=== PATIENT | female | born 1985 | race Caucasian/White ===

== ENCOUNTER 2020-05-07 00:53 | Inpatient (IN) | payer BC ==
[2020-05-07] MEDS ORDERED: Citric Acid/Sodium Citrate Solution 30 ML Cup PO ONE (01:49)
[2020-05-07] MEDS ORDERED: Sodium Chloride 0.9% 2.5 ML Syringe FLUSH PRN (01:49)
[2020-05-07] MEDS ORDERED: Sodium Chloride 0.9% 10 ML SDV IV PRN (01:49)
[2020-05-07] MEDS ORDERED: ceFAZolin 2 GM in Premix Bag 1 BAG IV ONE (01:49)
[2020-05-07] MEDS ORDERED: Sodium Chloride 0.9% 10 ML Syringe FLUSH PRN (01:49)
[2020-05-07] MEDS: Lactated Ringers 1,000 ML IV SCH ×3 (02:00→03:12)
[2020-05-07] MEDS ORDERED: Oxytocin/0.9 % Sodium Chloride 30 UNIT/500 ML BAG IV SCH (02:00)
[2020-05-07] MEDS ORDERED: Morphine PF 10 MG/10 ML SDV ONE (03:21)
[2020-05-07] MEDS ORDERED: Phenylephrine 1% 10 MG/ML SDV ONE (03:26)
[2020-05-07] MEDS ORDERED: Oxytocin 10 Units/1 ML SDV ONE (03:26)
[2020-05-07] MEDS ORDERED: Ketorolac 30 MG/ML SDV ONE (03:26)
[2020-05-07] MEDS ORDERED: Ondansetron 4 MG/2 ML SDV ONE (03:26)
[2020-05-07] MEDS ORDERED: Acetaminophen/oxyCODONE 325-5 MG Tab PO PRN (03:41)
[2020-05-07] MEDS ORDERED: fentaNYL 100 MCG/2 ML SDV IVPUSH PRN (03:42)
[2020-05-07] MEDS ORDERED: Methylergonovine 0.2 MG/1 ML Amp IM PRN (04:29)
[2020-05-07] MEDS ORDERED: Oxytocin 10 Units/1 ML SDV IM PRN (04:29)
[2020-05-07] MEDS ORDERED: Ondansetron 4 MG/2 ML SDV IVPUSH PRN (04:29)
[2020-05-07] MEDS ORDERED: Misoprostol 200 MCG Tab RECTAL PRN (04:29)
[2020-05-07] MEDS ORDERED: Lanolin 100% Cream 7 GM Tube TOP PRN (04:29)
[2020-05-07] MEDS ORDERED: Tranexamic Acid 1,000 MG in Sodium Chloride 0.9% 100 ML IV PRN (04:29)
[2020-05-07] MEDS ORDERED: Bisacodyl 10 MG Supp RECTAL PRN (04:29)
[2020-05-07] MEDS ORDERED: Lactated Ringers 1,000 ML IV SCH (04:30)
[2020-05-07] MEDS: Ketorolac 30 MG/ML SDV IVPUSH SCH ×4 (04:30→23:03)
--- NOTE | 2020-05-07 04:41 | PCM.OPNOTE ---
- General Post-Op/Procedure Note Date of Surgery/Procedure: 05/07/20 Operative Procedure(s): Primary LTCS Findings: Viable female APGARs 7, 8 weight 3120 gm. Intact placenta with 3 V cord Normal appearing pelvis Pre Op Diagnosis: 39 week IUP. SROM/labor. Breech Post-Op Diagnosis: Same Anesthesia Technique: Spinal Primary Surgeon: Danitza Gray Fluid Replacement, Intraop: 1,500 EBL in mLs: 600 Complications: none known Condition: Stable Free Text/Narrative:: Dictation [id number]
--- NOTE | 2020-05-07 04:56 | PCM.POSTAN ---
POST ANESTHESIA ASSESSMENT - MENTAL STATUS Mental Status: Alert - RESPIRATORY Respiratory Status: Respiratory Rate WNL - CARDIOVASCULAR CV Status: Pulse Rate WNL - GASTROINTESTINAL GI Status: No Symptoms - POST OP HYDRATION Hydration Status: Adequate & Stable
--- NOTE | 2020-05-07 04:57 | PCM.PREANE ---
Preanesthetic Assessment - Anesthesia/Transfusion/Family Hx Anesthesia History: Prior Anesthesia Without Reaction Family History of Anesthesia Reaction: No Transfusion History: No Prior Transfusion(s) - Physical Assessment NPO Status Date: 05/06/20 NPO Status Time: 19:30 Height: 1.65 m Weight: 96.162 kg ASA Class: 2E - Lab Values: Laboratory Last Values WBC 15.41 K/uL (4.0-11.0) H 05/07/20 01:40 RBC 4.47 M/uL (4.30-5.90) 05/07/20 01:40 Hgb 13.1 g/dL (12.0-16.0) 05/07/20 01:40 Hct 38.8 % (36.0-46.0) 05/07/20 01:40 MCV 86.8 fL (80.0-98.0) 05/07/20 01:40 MCH 29.3 pg (27.0-32.0) 05/07/20 01:40 MCHC 33.8 g/dL (31.0-37.0) 05/07/20 01:40 RDW Std Deviation 42.5 fl (28.0-62.0) 05/07/20 01:40 RDW Coeff of Tino 13 % (11.0-15.0) 05/07/20 01:40 Plt Count 291 K/uL (150-400) 05/07/20 01:40 MPV 9.10 fL (7.40-12.00) 05/07/20 01:40 Nucleated RBC % 0.0 /100WBC 05/07/20 01:40 Nucleated RBCs # 0 K/uL 05/07/20 01:40 Cord ABG pH 7.138 (7.18-7.38) L 05/07/20 03:47 Cord ABG Base Excess -9 (-10--2) 05/07/20 03:47 Cord VBG pH 7.199 (7.25-7.45) L 05/07/20 03:47 Cord VBG Base Excess -7 (-10--2) 05/07/20 03:47 COVID-19 (MANUEL) NEGATIVE (NEGATIVE) 05/07/20 01:25 Blood Type O POSITIVE 05/07/20 01:40 Antibody Screen NEGATIVE 07/27/20 01:40 - Allergies Allergies/Adverse Reactions: Allergies Allergy/AdvReac Type Severity Reaction Status Date / Time Sulfa (Sulfonamide Allergy Hives Verified 05/07/20 01:46 Antibiotics) - Acknowledgements Anesthesia Type Planned: Spinal Pt an Appropriate Candidate for the Planned Anesthesia: Yes Alternatives and Risks of Anesthesia Discussed w Pt/Guardian: Yes Pt/Guardian Understands and Agrees with Anesthesia Plan: Yes PreAnesthesia Questionnaire HEENT History: Reports: None Cardiovascular History: Reports: None Respiratory History: Reports: None Gastrointestinal History: Reports: Other (See Below) Other Gastrointestinal History: heartburn with LENS GRINDER AND POLISHER History: Reports: Musculoskeletal History: Reports: None Neurological History: Reports: None Psychiatric History: Reports: Panic Attack Endocrine/Metabolic History: Reports: Hypothyroidism Hematologic History: Reports: None Immunologic History: Reports: None Oncologic (Cancer) History: Reports: None Dermatologic History: Reports: None - Infectious Disease History Infectious Disease History: Reports: Influenza - Past Surgical History HEENT Surgical History: Reports: Oral Surgery, Tonsillectomy Other HEENT Surgeries/Procedures: wisdom teeth Female Surgical History: Reports: None - SUBSTANCE USE Smoking Status *Q: Never Smoker Second Hand Smoke Exposure: No Recreational Drug Use History: No - CURRENT (IN HOUSE) MEDS Current Meds: Current Medications Bisacodyl (Dulcolax) 10 mg RECTAL ONETIME PRN PRN Reason: Constipation Diphenhydramine HCl (Benadryl) 25 mg IVPUSH Q6H PRN PRN Reason: Itching or Nausea Docusate Sodium (Colace) 100 mg PO BID ENOCH Emollient Ointment (Lansinoh Hpa) 0 gm TOP ASDIRECTED PRN PRN Reason: Sore Nipples Fentanyl (Sublimaze) 50 mcg IVPUSH Q5M PRN PRN Reason: Pain (severe 7-10) Stop: 05/08/20 03:42 Oxytocin/Sodium Chloride (Oxytocin 30 Unit/500 Ml-Ns) 30 unit in 500 mls @ 250 mls/hr IV TITRATE ENOCH Lactated Ringer's (Ringers, Lactated) 1,000 mls @ 500 mls/hr IV BOLUS ENOCH Last Admin: 05/07/20 03:12 Dose: 999 mls/hr Documented by: Lactated Ringer's (Ringers, Lactated) 1,000 mls @ 125 mls/hr IV ASDIRECTED [facility] Tranexamic Acid 1,000 mg/ (Sodium Chloride) 110 mls @ 660 mls/hr IV ONETIME PRN PRN Reason: Bleeding Ibuprofen (Motrin) 800 mg PO Q8H PRN PRN Reason: mild pain or fever Ketorolac Tromethamine (Toradol) 30 mg IVPUSH Q6H [facility] Stop: 05/08/20 04:31 Methylergonovine Maleate (Methergine) 0.2 mg IM ONETIME PRN PRN Reason: Excessive Vaginal Bleeding Misoprostol (Cytotec) 1,000 mcg RECTAL ONETIME PRN PRN Reason: excessive bleeding Nalbuphine HCl (Nubain) 2.5 mg IVPUSH Q3H PRN PRN Reason: Pruritis Stop: 05/08/20 03:42 Ondansetron HCl (Zofran) 4 mg IVPUSH Q4H PRN PRN Reason: Nausea/Vomiting Oxycodone/Acetaminophen (Percocet 325-5 Mg) 1 tab PO ONETIME PRN PRN Reason: Pain (moderate 4-6) Oxycodone/Acetaminophen (Percocet 325-5 Mg) 1 tab PO Q4H PRN PRN Reason: Pain (moderate 4-6) Oxycodone/Acetaminophen (Percocet 325-5 Mg) 2 tab PO Q4H PRN PRN Reason: Pain (moderate 4-6) Oxytocin (Pitocin) 10 unit IM ASDIRECTED PRN PRN Reason: Excessive Vaginal Bleeding Simethicone (Simethicone) 160 mg PO QID [facility] Sodium Chloride (Saline Flush) 10 ml FLUSH ASDIRECTED PRN PRN Reason: Keep Vein Open Sodium Chloride (Saline Flush) 2.5 ml FLUSH ASDIRECTED PRN PRN Reason: Keep Vein Open Sodium Chloride (Normal Saline) 10 ml IV ASDIRECTED PRN PRN Reason: IV Use Discontinued Medications Citric Acid/Sodium Citrate (Bicitra Solution) 30 ml PO ONETIME ONE Stop: 05/07/20 01:50 Last Admin: 05/07/20 03:16 Dose: 30 ml Documented by: Cefazolin Sodium/Dextrose 2 gm (/ Premix) 50 mls @ 100 mls/hr IV ONETIME ONE Stop: 05/07/20 02:18 Ketorolac Tromethamine (Toradol) Confirm Administered Dose 30 mg .ROUTE .STK-MED ONE Stop: 05/07/20 03:27 Morphine Sulfate (Duramorph Pf) Confirm Administered Dose 10 mg .ROUTE .STK-MED ONE Stop: 05/07/20 03:22 Ondansetron HCl (Zofran) Confirm Administered Dose 4 mg .ROUTE .STK-MED ONE Stop: 05/07/20 03:27 Oxytocin (Pitocin) Confirm Administered Dose 20 unit .ROUTE .STK-MED ONE Stop: 05/07/20 03:27 Phenylephrine HCl (Michele-Synephrine) Confirm Administered Dose 10 mg .ROUTE .STK- MED ONE Stop: 05/07/20 03:27
[2020-05-07] MEDS: Nalbuphine 10 MG/1 ML Vial IVPUSH PRN ×3 (07:08→23:27)
--- NOTE | 2020-05-07 08:21 | OR ---
SURGEON: Danitza Gray M.D. DATE OF PROCEDURE: 05/07/2020 PREOPERATIVE DIAGNOSES: 1. 39 weeks' intrauterine . 2. Spontaneous rupture of membranes, active labor. 3. Breech. POSTOPERATIVE DIAGNOSES: 1. 39 weeks' intrauterine . 2. Spontaneous rupture of membranes, active labor. 3. Breech. PROCEDURE: Primary low-transverse section. ANESTHESIA: Spinal. ESTIMATED BLOOD LOSS: 600 mL. COMPLICATIONS: None known. FINDINGS: Viable female. score 7 at 1 minute, 8 at 5 minutes. Weight of 3120 g. Intact placenta, 3-vessel cord. Normal-appearing pelvis. Nuchal cord x2 noted DISPOSITION: Infant to nursery, Mom to PACU in stable condition. 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 Upon presentation, she is found to have spontaneous rupture of membranes, clear fluid. She is group B strep negative and began maximino every 2 to 3 minutes and breathing through them. With sonogram, she was confirmed to be breech presentation. The patient was admitted, routine labs drawn. IV hydration was initiated. She is COVID negative. Given the breech presentation, the patient was already planning a primary delivery. Therefore, we discussed the risks of procedure including infection; bleeding; possible trauma to the surrounding bowel, bladder, ureters; in case of excessive blood loss need for blood product transfusion; in rare lifesaving circumstances need for hysterectomy, risk for thromboembolic event, risk of anesthesia. Proper consent obtained. Nursing doping supervisor and Anesthesia contacted. The patient was taken to the operating room where she underwent spinal anesthetic, was placed in dorsal supine position with a leftward tilt. SCDs to the lower extremities. Holguin to gravity. Was prepped and draped in the usual sterile fashion. Time-out was performed. Anesthesia was tested, found to be adequate. A Pfannenstiel skin incision was now created, carried down to the level of the rectus fascia, was incised in the midline, lateralized on either side sharply and bluntly. The fascia was tented upward, dissected sharply and bluntly from the underlying muscle. In a similar aspect, this was performed with the inferior aspect of fascia. Rectus muscle was in the midline. Peritoneum was entered. Rectus muscle and peritoneum were now lateralized bluntly. Uterine position and position palpated. Self-retaining retractor was gently placed. Uterovesical reflection was visualized. Bladder flap was created sharply and bluntly. Bladder was mobilized away from lower uterine segment. Low transverse hysterotomy was now performed. Uterine cavity was entered with the blunt-ended scalpel. Hysterotomy was lateralized bluntly. The 's buttocks were elevated from the pelvis and delivered to the midline. Buttocks delivered followed by the left lower extremity, right lower extremity, trunk, left upper extremity, right upper extremity. The head was flexed and delivered. Nuchal cord x2 was noted. This was reduced manually. The 's oropharynx and nares were bulb suctioned. Cord was clamped x2 and cut. Infant was handed off to attending nursery staff and duct layer supervisor. Cord arterial, cord venous, cord blood sampling was obtained. The placenta was now delivered. Uterine cavity was cleared of all clot and debris. Hysterotomy was repaired using 0 Vicryl in continuous running locked fashion, followed by re-imbricating layer. Area of oozing along the left lateral aspect was replicated with [id number] suture. Hemostasis thereafter evident. Posterior aspect of the uterus inspected. No defects or hematomas found be forming. Region was well irrigated and suction dried. Colonic gutters were cleared of all clot and debris, well irrigated, suction dried. The hysterotomy was again inspected, found to be hemostatic. The self- retaining retractor was gently removed. The bladder blade and Rich were now placed. Hysterotomy once again inspected, found to be hemostatic. The peritoneum and muscles replicated with 0 Vicryl in inverted mattress suture technique. Anterior aspect of the muscle, posterior aspect of the fascia were closely inspected, any areas of oozing were cauterized. The rectus fascia was reapproximated using 0 Vicryl in continuous running fashion, beginning laterally on either side meeting in the midline. Subcutaneous tissue was well irrigated, suction dried. Any areas of oozing were cauterized. The skin edges were reapproximated using 3-0 Vicryl on a Emir needle in subcuticular fashion, followed by 1/2-inch Steri-Strips, Mastisol for imbrication. Sponge, instrument, and needle counts correct. The patient will be going to the PACU in stable condition. SOLBSAR / MODL /[id number] JAZZMINE
[2020-05-07] MEDS: Simethicone 80 MG Tab.Chew PO SCH ×3 (08:36→19:44)
[2020-05-07] MEDS: Docusate Sodium 100 MG Cap PO SCH ×2 (08:36→21:58)
[2020-05-07] MEDS: diphenhydrAMINE 50 MG/ML SDV IVPUSH PRN ×2 (09:26→19:45)
[2020-05-07] MEDS: Levothyroxine 125 MCG Tab PO SCH (12:39)
[2020-05-08] MEDS: Simethicone 80 MG Tab.Chew PO SCH ×5 (00:31→23:00)
[2020-05-08] MEDS: Acetaminophen/oxyCODONE 325-5 MG Tab PO PRN ×7 (02:47→23:00)
[2020-05-08] MEDS: diphenhydrAMINE 50 MG/ML SDV IVPUSH PRN (07:39)
[2020-05-08] MEDS: Levothyroxine 125 MCG Tab PO SCH (07:49)
[2020-05-08] MEDS: Docusate Sodium 100 MG Cap PO SCH ×2 (08:19→20:58)
[2020-05-08] MEDS: Ibuprofen 800 MG Tab PO PRN ×2 (08:48→17:24)
--- NOTE | 2020-05-08 08:49 | PCM.PNPP ---
- General Info Date of Service: 05/08/20 Functional Status: Reports: Pain Controlled, Tolerating Diet, Ambulating, Urinating - Review of Systems General: Reports: No Symptoms HEENT: Reports: No Symptoms Pulmonary: Reports: No Symptoms Cardiovascular: Reports: No Symptoms Gastrointestinal: Reports: No Symptoms Genitourinary: Reports: No Symptoms Musculoskeletal: Reports: No Symptoms Skin: Reports: No Symptoms Neurological: Reports: No Symptoms Psychiatric: Reports: No Symptoms - General Info Date of Service: 05/08/20 - Patient Data Vital Signs - Most Recent: Last Vital Signs Temp 35.9 C L 05/08/20 04:00 Pulse 83 05/08/20 04:00 Resp 15 05/08/20 04:00 BP 105/57 L 05/08/20 04:00 Pulse Ox 95 05/08/20 04:00 Weight - Most Recent: 96.162 kg I&O - Last 24 Hours: Intake & Output 05/07/20 05/08/20 05/08/20 22:59 06:59 14:59 Output Total 1500 1200 Balance -1500 -1200 Lab Results - Last 24 Hours: Laboratory Results - last 24 hr 05/08/20 Range/Units 06:08 Hgb 11.2 L (12.0-16.0) g/dL Hct 34.3 L (36.0-46.0) % Med Orders - Current: Current Medications Bisacodyl (Dulcolax) 10 mg RECTAL ONETIME PRN PRN Reason: Constipation Diphenhydramine HCl (Benadryl) 25 mg IVPUSH Q6H PRN PRN Reason: Itching or Nausea Last Admin: 05/08/20 07:39 Dose: 25 mg Documented by: Docusate Sodium (Colace) 100 mg PO BID REPLACED BY [facility] Last Admin: 05/08/20 08:19 Dose: 100 mg Documented by: Emollient Ointment (Lansinoh Hpa) 0 gm TOP ASDIRECTED PRN PRN Reason: Sore Nipples Oxytocin/Sodium Chloride (Oxytocin 30 Unit/500 Ml-Ns) 30 unit in 500 mls @ 250 mls/hr IV TITRATE ENOCH Lactated Ringer's (Ringers, Lactated) 1,000 mls @ 500 mls/hr IV BOLUS REPLACED BY [facility] Last Admin: 05/07/20 03:12 Dose: 999 mls/hr Documented by: Lactated Ringer's (Ringers, Lactated) 1,000 mls @ 125 mls/hr IV ASDIRECTED REPLACED BY [facility] Last Admin: 05/07/20 07:08 Dose: 125 mls/hr Documented by: Tranexamic Acid 1,000 mg/ (Sodium Chloride) 110 mls @ 660 mls/hr IV ONETIME PRN PRN Reason: Bleeding Ibuprofen (Motrin) 800 mg PO Q8H PRN PRN Reason: mild pain or fever Levothyroxine Sodium (Levothyroxine) 125 mcg PO ACBREAKFAST REPLACED BY [facility] Last Admin: 05/08/20 07:49 Dose: 125 mcg Documented by: Liothyronine Sodium (Cytomel) 25 mcg PO ACBREAKFAST REPLACED BY [facility] Last Admin: 05/08/20 08:20 Dose: 25 mcg Documented by: Methylergonovine Maleate (Methergine) 0.2 mg IM ONETIME PRN PRN Reason: Excessive Vaginal Bleeding Misoprostol (Cytotec) 1,000 mcg RECTAL ONETIME PRN PRN Reason: excessive bleeding Ondansetron HCl (Zofran) 4 mg IVPUSH Q4H PRN PRN Reason: Nausea/Vomiting Oxycodone/Acetaminophen (Percocet 325-5 Mg) 1 tab PO ONETIME PRN PRN Reason: Pain (moderate 4-6) Oxycodone/Acetaminophen (Percocet 325-5 Mg) 1 tab PO Q4H PRN PRN Reason: Pain (moderate 4-6) Last Admin: 05/08/20 07:47 Dose: 1 tab Documented by: Oxycodone/Acetaminophen (Percocet 325-5 Mg) 2 tab PO Q4H PRN PRN Reason: Pain (moderate 4-6) Last Admin: 05/08/20 02:47 Dose: 2 tab Documented by: Oxytocin (Pitocin) 10 unit IM ASDIRECTED PRN PRN Reason: Excessive Vaginal Bleeding Simethicone (Simethicone) 160 mg PO QID REPLACED BY [facility] Last Admin: 05/08/20 06:49 Dose: 160 mg Documented by: Sodium Chloride (Saline Flush) 10 ml FLUSH ASDIRECTED PRN PRN Reason: Keep Vein Open Sodium Chloride (Saline Flush) 2.5 ml FLUSH ASDIRECTED PRN PRN Reason: Keep Vein Open Sodium Chloride (Normal Saline) 10 ml IV ASDIRECTED PRN PRN Reason: IV Use Discontinued Medications Citric Acid/Sodium Citrate (Bicitra Solution) 30 ml PO ONETIME ONE Stop: 05/07/20 01:50 Last Admin: 05/07/20 03:16 Dose: 30 ml Documented by: Fentanyl (Sublimaze) 50 mcg IVPUSH Q5M PRN PRN Reason: Pain (severe 7-10) Stop: 05/08/20 03:42 Cefazolin Sodium/Dextrose 2 gm (/ Premix) 50 mls @ 100 mls/hr IV ONETIME ONE Stop: 05/07/20 02:18 Last Admin: 05/07/20 17:05 Dose: Not Given Documented by: Ketorolac Tromethamine (Toradol) Confirm Administered Dose 30 mg .ROUTE .STK-MED ONE Stop: 05/07/20 03:27 Ketorolac Tromethamine (Toradol) 30 mg IVPUSH Q6H REPLACED BY [facility] Stop: 05/08/20 04:31 Last Admin: 05/07/20 23:03 Dose: 30 mg Documented by: Liothyronine Sodium (Cytomel) 25 mcg PO DAILY REPLACED BY [facility] Last Admin: 05/07/20 12:39 Dose: 25 mcg Documented by: Liothyronine Sodium (Cytomel) 25 mcg PO ACBREAKFAST REPLACED BY [facility] Morphine Sulfate (Duramorph Pf) Confirm Administered Dose 10 mg .ROUTE .STK-MED ONE Stop: 05/07/20 03:22 Nalbuphine HCl (Nubain) 2.5 mg IVPUSH Q3H PRN PRN Reason: Pruritis Stop: 05/08/20 03:42 Last Admin: 05/07/20 23:27 Dose: 2.5 mg Documented by: Ondansetron HCl (Zofran) Confirm Administered Dose 4 mg .ROUTE .STK-MED ONE Stop: 05/07/20 03:27 Oxytocin (Pitocin) Confirm Administered Dose 20 unit .ROUTE .STK-MED ONE Stop: 05/07/20 03:27 Phenylephrine HCl (Michele-Synephrine) Confirm Administered Dose 10 mg .ROUTE .STK- MED ONE Stop: 05/07/20 03:27 - Infant Interaction Support Person: - Recovery Exam Fundal Tone: Firm Fundal Level: 1 Fingerbreadths Below Umbilicus Fundal Placement: Midline Lochia Amount: Scant Lochia Color: Rubra/Red Perineum Description: Intact, Minimal Bruising/Swelling Episiotomy/Laceration: None Bladder Status: Indwelling Catheter in Place Urinary Elimination: Indwelling Catheter - Exam General: Alert, Oriented Neck: Supple Lungs: Normal Respiratory Effort GI/Abdominal Exam: Soft, Non-Tender Extremities: Normal Inspection. No: No Pedal Edema (1+ equal, no Riya's) Skin: Warm, Dry, Intact Wound/Incisions: Dressing Dry and Intact Psy/Mental Status: Alert, Normal Affect, Normal Mood - Problem List & Annotations (1) Breech presentation SNOMED Code(s): 6677214 Code(s): O32.1XX0 - MATERNAL CARE FOR BREECH PRESENTATION, UNSP Status: Acute Current Visit: Yes (2) delivery delivered SNOMED Code(s): 843693023 Code(s): O82 - ENCOUNTER FOR DELIVERY WITHOUT INDICATION Status: Acute Current Visit: Yes - Problem List Review Problem List Initiated/Reviewed/Updated: Yes - My Orders Last 24 Hours: My Active Orders 05/08/20 07:30 Liothyronine [CytomeL] 25 mcg PO ACBREAKFAST - Assessment Assessment:: POD#1 after primary for breech presentation, with PROM. Stable, minimal lochia, tolerating diet, on oral pain medications. working on janell pierce. - Plan Plan:: Continue care, anticipate discharge in am.
--- NOTE | 2020-05-08 08:50 | PCM48HPAN ---
Post Anesthesia Note - EVALUATION WITHIN 48HRS OF ANESTHETIC Vital Signs in Normal Range: Yes Patient Participated in Evaluation: Yes Respiratory Function Stable: Yes Airway Patent: Yes Cardiovascular Function Stable: Yes Hydration Status Stable: Yes Pain Control Satisfactory: Yes Nausea and Vomiting Control Satisfactory: Yes Mental Status Recovered: Yes Vital Signs: Last Vital Signs Temp 96.7 F L 05/08/20 04:00 Pulse 83 05/08/20 04:00 Resp 15 05/08/20 04:00 BP 105/57 L 05/08/20 04:00 Pulse Ox 95 05/08/20 04:00 - COMMENTS/OBSERVATIONS Free Text/Narrative:: Patient reported feeling sore this morning, but overall feeling good. Dneied any numbness or tingling in her legs. Has been up out of bed walking around without issue.
[2020-05-08] MEDS ORDERED: diphenhydrAMINE 25 MG Cap PO PRN (16:56)
[2020-05-08] MEDS: Ketorolac 30 MG/ML SDV IVPUSH SCH (18:14)
[2020-05-09] MEDS: Ibuprofen 800 MG Tab PO PRN ×2 (01:26→09:34)
[2020-05-09] MEDS: Acetaminophen/oxyCODONE 325-5 MG Tab PO PRN ×3 (03:00→11:38)
[2020-05-09] MEDS: Simethicone 80 MG Tab.Chew PO SCH ×2 (05:34→11:07)
[2020-05-09] MEDS: Levothyroxine 125 MCG Tab PO SCH (07:19)
--- NOTE | 2020-05-09 08:53 | PCM.PNPP ---
- General Info Date of Service: 05/09/20 Functional Status: Reports: Pain Controlled, Tolerating Diet, Ambulating, Urinating - Review of Systems General: Reports: No Symptoms HEENT: Reports: No Symptoms Pulmonary: Reports: No Symptoms Cardiovascular: Reports: No Symptoms Gastrointestinal: Reports: No Symptoms Genitourinary: Reports: No Symptoms Musculoskeletal: Reports: No Symptoms Skin: Reports: No Symptoms Neurological: Reports: No Symptoms Psychiatric: Reports: No Symptoms - Patient Data Vital Signs - Most Recent: Last Vital Signs Temp 36.6 C 05/09/20 04:00 Pulse 72 05/09/20 04:00 Resp 16 05/09/20 04:00 BP 100/65 05/09/20 04:00 Pulse Ox 95 05/09/20 04:00 Weight - Most Recent: 96.162 kg Med Orders - Current: Current Medications Bisacodyl (Dulcolax) 10 mg RECTAL ONETIME PRN PRN Reason: Constipation Diphenhydramine HCl (Benadryl) 25 mg IVPUSH Q6H PRN PRN Reason: Itching or Nausea Last Admin: 05/08/20 07:39 Dose: 25 mg Documented by: Diphenhydramine HCl (Benadryl) 25 mg PO Q6H PRN PRN Reason: Itching Docusate Sodium (Colace) 100 mg PO BID [facility] Last Admin: 05/08/20 20:58 Dose: 100 mg Documented by: Emollient Ointment (Lansinoh Hpa) 0 gm TOP ASDIRECTED PRN PRN Reason: Sore Nipples Oxytocin/Sodium Chloride (Oxytocin 30 Unit/500 Ml-Ns) 30 unit in 500 mls @ 250 mls/hr IV TITRATE [facility] Lactated Ringer's (Ringers, Lactated) 1,000 mls @ 500 mls/hr IV BOLUS [facility] Last Admin: 05/07/20 03:12 Dose: 999 mls/hr Documented by: Lactated Ringer's (Ringers, Lactated) 1,000 mls @ 125 mls/hr IV ASDIRECTED [facility] Last Admin: 05/07/20 07:08 Dose: 125 mls/hr Documented by: Tranexamic Acid 1,000 mg/ (Sodium Chloride) 110 mls @ 660 mls/hr IV ONETIME PRN PRN Reason: Bleeding Ibuprofen (Motrin) 800 mg PO Q8H PRN PRN Reason: mild pain or fever Last Admin: 05/09/20 01:26 Dose: 800 mg Documented by: Levothyroxine Sodium (Levothyroxine) 125 mcg PO ACBREAKFAST [facility] Last Admin: 05/09/20 07:19 Dose: 125 mcg Documented by: Liothyronine Sodium (Cytomel) 25 mcg PO ACBREAKFAST [facility] Last Admin: 05/09/20 07:19 Dose: 25 mcg Documented by: Methylergonovine Maleate (Methergine) 0.2 mg IM ONETIME PRN PRN Reason: Excessive Vaginal Bleeding Misoprostol (Cytotec) 1,000 mcg RECTAL ONETIME PRN PRN Reason: excessive bleeding Ondansetron HCl (Zofran) 4 mg IVPUSH Q4H PRN PRN Reason: Nausea/Vomiting Oxycodone/Acetaminophen (Percocet 325-5 Mg) 1 tab PO ONETIME PRN PRN Reason: Pain (moderate 4-6) Oxycodone/Acetaminophen (Percocet 325-5 Mg) 1 tab PO Q4H PRN PRN Reason: Pain (moderate 4-6) Last Admin: 05/08/20 14:40 Dose: 1 tab Documented by: Oxycodone/Acetaminophen (Percocet 325-5 Mg) 2 tab PO Q4H PRN PRN Reason: Pain (moderate 4-6) Last Admin: 05/09/20 07:18 Dose: 2 tab Documented by: Oxytocin (Pitocin) 10 unit IM ASDIRECTED PRN PRN Reason: Excessive Vaginal Bleeding Simethicone (Simethicone) 160 mg PO QID [facility] Last Admin: 05/09/20 05:34 Dose: 160 mg Documented by: Sodium Chloride (Saline Flush) 10 ml FLUSH ASDIRECTED PRN PRN Reason: Keep Vein Open Sodium Chloride (Saline Flush) 2.5 ml FLUSH ASDIRECTED PRN PRN Reason: Keep Vein Open Sodium Chloride (Normal Saline) 10 ml IV ASDIRECTED PRN PRN Reason: IV Use Discontinued Medications Citric Acid/Sodium Citrate (Bicitra Solution) 30 ml PO ONETIME ONE Stop: 05/07/20 01:50 Last Admin: 05/07/20 03:16 Dose: 30 ml Documented by: Fentanyl (Sublimaze) 50 mcg IVPUSH Q5M PRN PRN Reason: Pain (severe 7-10) Stop: 05/08/20 03:42 Cefazolin Sodium/Dextrose 2 gm (/ Premix) 50 mls @ 100 mls/hr IV ONETIME ONE Stop: 05/07/20 02:18 Last Admin: 05/07/20 17:05 Dose: Not Given Documented by: Ketorolac Tromethamine (Toradol) Confirm Administered Dose 30 mg .ROUTE .STK-MED ONE Stop: 05/07/20 03:27 Ketorolac Tromethamine (Toradol) 30 mg IVPUSH Q6H [facility] Stop: 05/08/20 04:31 Last Admin: 05/08/20 18:14 Dose: Not Given Documented by: Liothyronine Sodium (Cytomel) 25 mcg PO DAILY [facility] Last Admin: 05/07/20 12:39 Dose: 25 mcg Documented by: Liothyronine Sodium (Cytomel) 25 mcg PO ACBREAKFAST [facility] Morphine Sulfate (Duramorph Pf) Confirm Administered Dose 10 mg .ROUTE .STK-MED ONE Stop: 05/07/20 03:22 Nalbuphine HCl (Nubain) 2.5 mg IVPUSH Q3H PRN PRN Reason: Pruritis Stop: 05/08/20 03:42 Last Admin: 05/07/20 23:27 Dose: 2.5 mg Documented by: Ondansetron HCl (Zofran) Confirm Administered Dose 4 mg .ROUTE .STK-MED ONE Stop: 05/07/20 03:27 Oxytocin (Pitocin) Confirm Administered Dose 20 unit .ROUTE .STK-MED ONE Stop: 05/07/20 03:27 Phenylephrine HCl (Michele-Synephrine) Confirm Administered Dose 10 mg .ROUTE .STK- MED ONE Stop: 05/07/20 03:27 - Interaction Disposition, : [place] in Room with Family Interaction: Holding Infant Support Person: - Recovery Exam Fundal Tone: Firm Fundal Level: 2 Fingerbreadths Below Umbilicus Fundal Placement: Midline Lochia Amount: Scant Lochia Color: Rubra/Red Perineum Description: Intact, Minimal Bruising/Swelling Episiotomy/Laceration: None Bladder Status: Voiding Urinary Elimination: Voided - Exam General: Alert, Oriented Neck: Supple Lungs: Normal Respiratory Effort GI/Abdominal Exam: Soft, Non-Tender Extremities: Normal Range of Motion, No Pedal Edema Skin: Warm, Dry, Intact Wound/Incisions: Healing Well Neurological: No New Focal Deficit Psy/Mental Status: Alert, Normal Affect, Normal Mood - Problem List & Annotations (1) Breech presentation SNOMED Code(s): 7481768 Code(s): O32.1XX0 - MATERNAL CARE FOR BREECH PRESENTATION, UNSP Status: Acute Current Visit: Yes (2) delivery delivered SNOMED Code(s): 851398287 Code(s): O82 - ENCOUNTER FOR DELIVERY WITHOUT INDICATION Status: Acute Current Visit: Yes - Problem List Review Problem List Initiated/Reviewed/Updated: Yes - My Orders Last 24 Hours: My Active Orders 05/08/20 16:56 diphenhydrAMINE [Benadryl] 25 mg PO Q6H PRN 05/09/20 05:51 Ready for Discharge [RC] PER UNIT ROUTINE - Assessment Assessment:: POD#2 after primary for breech presentation, with PROM. Stable, minimal lochia, tolerating diet, on oral pain medications. is improving, would like to go home later today. Discharge instructions reviewed. - Plan Plan:: Continue care, anticipate discharge in am.
[2020-05-09] MEDS: Docusate Sodium 100 MG Cap PO SCH (09:35)
== END 2020-05-09 13:05 | disposition home or self-care (01) | DRG 540 ==
LOC: MW.OBCHECK 00:53 → MW.OB 00:54 → MW.OBCHECK 01:49 → MW.OB 11:15
PROVIDERS: ADMIT Obstetrics & Gynecology; ATTEND Obstetrics & Gynecology
PROC: 10D00Z1 Extraction of Products of Conception, Low, Open Approach (ICD-10-PCS; principal; 2020-05-07)
DX: O32.1XX0 Maternal care for breech presentation, not applicable or unspecified (principal); Z3A.39 39 weeks gestation of pregnancy; Z37.0 Single live birth; O69.81X0 Labor and delivery complicated by cord around neck, without compression, not applicable or unspecified; Z11.59 Encounter for screening for other viral diseases
CPT/HCPCS: 36415; 51702; 59025; 82803; 85014; 85018; 85027; 86592; 86850; 86900; 86901; A9270-GY; J1200; J1885; J2270; J2300; J2370; J2405; J2590; J7120; U0002

== ENCOUNTER 2021-03-31 18:27 | Emergency (ER) | payer BC ==
--- NOTE | 2021-03-31 18:54 | EDM.PDOC ---
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 Patient first noted spotting 3 days ago with mild cramping pains. Called OB who recommended patient come in Thursday for eval. Patient this AM around 3AM had heavy bleeding described as bright red blood and clots and worsening cramping pains. No vomiting. Pain is b/l lower pelvis. Patient notes that on routine US a little over a week ago the fetus appeared normal but there was subchorionic hemorrhage. 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: Musculoskeletal History: Reports: None Neurological History: Reports: None Psychiatric History: Reports: Panic Attack Endocrine/Metabolic History: Reports: Hypothyroidism Hematologic History: Reports: None Immunologic History: Reports: None Oncologic (Cancer) History: Reports: None Dermatologic History: Reports: None - Infectious Disease History Infectious Disease History: Reports: Influenza - Past Surgical History HEENT Surgical History: Reports: Oral Surgery, Tonsillectomy Other HEENT Surgeries/Procedures: wisdom teeth Female Surgical History: Reports: None Social & Family History - Family History HEENT: Reports: None Cardiac: Reports: Bypass Respiratory: Reports: None GI: Reports: None : Reports: None OBGYN: Reports: Endometriosis, Musculoskeletal: Reports: None Neurological: Reports: Cerebral Palsy Psychiatric: Reports: None Endocrine/Metabolic: Reports: None Hematologic: Reports: None Immunologic: Reports: None Dermatologic: Reports: None Oncologic: Reports: None - Caffeine Use Caffeine Use: Reports: None ED ROS GENERAL - Review of Systems Review Of Systems: Comprehensive ROS is negative, except as noted in HPI. ED EXAM, GENERAL - Physical Exam Exam: See Below Exam Limited By: No Limitations General Appearance: Alert, WD/WN, No Apparent Distress Ears: Hearing Grossly Normal Throat/Mouth: Normal Voice, No Airway Compromise Head: Atraumatic, Normocephalic Respiratory/Chest: No Respiratory Distress, Lungs Clear, Normal Breath Sounds, No Accessory Muscle Use Cardiovascular: Normal Peripheral Pulses, Regular Rate, Rhythm GI/Abdominal: Soft, Other (suprapubic TTP without guarding or rebound) Extremities: Normal Inspection Neurological: Alert, Normal Cognition Psychiatric: Normal Affect, Normal Mood Skin Exam: Warm, Dry, Intact, Normal Color Course - Vital Signs Last Recorded V/S: Last Vital Signs Temp 97.6 F 03/31/21 18:56 Pulse 93 03/31/21 20:20 Resp 17 03/31/21 20:20 BP 103/59 L 03/31/21 20:20 Pulse Ox 99 03/31/21 20:20 - Orders/Labs/Meds Orders: Active Orders 24 hr Category Date Time Status Sodium Chloride 0.9% [Saline Flush] Med 03/31/21 19:00 Active 10 ml FLUSH ASDIRECTED PRN Sodium Chloride 0.9% [Saline Flush] Med 03/31/21 19:00 Active 2.5 ml FLUSH ASDIRECTED PRN Saline Lock Insert [OM.PC] Stat Oth 03/31/21 19:00 Ordered Medication Orders Sodium Chloride (Sodium Chloride 0.9% 10 Ml Syringe) 10 ml FLUSH ASDIRECTED PRN PRN Reason: Keep Vein Open Sodium Chloride (Sodium Chloride 0.9% 2.5 Ml Syringe) 2.5 ml FLUSH ASDIRECTED PRN PRN Reason: Keep Vein Open Labs: Laboratory Tests 03/31/21 03/31/21 03/31/21 Range/Units 19:05 19:28 19:28 WBC 10.93 (4.0-11.0) K/uL RBC 4.76 (4.30-5.90) M/uL Hgb 14.1 (12.0-16.0) g/dL Hct 41.3 (36.0-46.0) % MCV 86.8 (80.0-98.0) fL MCH 29.6 (27.0-32.0) pg MCHC 34.1 (31.0-37.0) g/dL RDW Std Deviation 40.1 (28.0-62.0) fl RDW Coeff of Tino 13 (11.0-15.0) % Plt Count 349 (150-400) K/uL MPV 8.80 (7.40-12.00) fL Neut % (Auto) 50.8 (48.0-80.0) % Lymph % (Auto) 34.7 (16.0-40.0) % [place] % (Auto) 12.3 (0.0-15.0) % Eos % (Auto) 1.6 (0.0-7.0) % Baso % (Auto) 0.6 (0.0-1.5) % Neut # (Auto) 5.6 (1.4-5.7) K/uL Lymph # (Auto) 3.8 H (0.6-2.4) K/uL [place] # (Auto) 1.3 H (0.0-0.8) K/uL Eos # (Auto) 0.2 (0.0-0.7) K/uL Baso # (Auto) 0.1 (0.0-0.1) K/uL Nucleated RBC % 0.0 /100WBC Nucleated RBCs # 0 K/uL Sodium 137 (136-145) mmol/L Potassium 3.8 (3.5-5.1) mmol/L Chloride 102 (98-107) mmol/L Carbon Dioxide 24.3 (21.0-32.0) mmol/L BUN 14 (7.0-18.0) mg/dL Creatinine 0.9 (0.6-1.0) mg/dL Est Cr Clr Drug Dosing 80.00 mL/min Estimated GFR (MDRD) > 60.0 ml/min Glucose 81 (74-106) mg/dL Calcium 9.1 (8.5-10.1) mg/dL Total Bilirubin 0.2 (0.2-1.0) mg/dL AST 17 (15-37) IU/L ALT 24 (14-63) IU/L Alkaline Phosphatase 115 (46-116) U/L Total Protein 7.7 (6.4-8.2) g/dL Albumin 3.7 (3.4-5.0) g/dL Globulin 4.0 (2.6-4.0) g/dL Albumin/Globulin Ratio 0.9 (0.9-1.6) HCG, Quant 48302.0 mIU/mL Urine Color YELLOW Urine Appearance SLT CLOUDY Urine pH 6.0 (5.0-8.0) Ur Specific [place] 1.025 (1.001-1.035) Urine Protein NEGATIVE (NEGATIVE) mg/dL Urine Glucose (UA) NEGATIVE (NEGATIVE) mg/dL Urine Ketones NEGATIVE (NEGATIVE) mg/dL Urine Occult Blood LARGE H (NEGATIVE) Urine Nitrite NEGATIVE (NEGATIVE) Urine Bilirubin NEGATIVE (NEGATIVE) Urine Urobilinogen 0.2 (<2.0) EU/dL Ur Leukocyte Esterase NEGATIVE (NEGATIVE) Urine RBC 51-55 (0-2/HPF) Urine WBC 0-1 (0-5/HPF) Ur Epithelial Cells RARE (NONE-FEW) Urine Bacteria FEW (NEGATIVE) Urine Mucus LIGHT (NONE-MOD) Blood Type 03/31/21 Range/Units 19:28 WBC (4.0-11.0) K/uL RBC (4.30-5.90) M/uL Hgb (12.0-16.0) g/dL Hct (36.0-46.0) % MCV (80.0-98.0) fL MCH (27.0-32.0) pg MCHC (31.0-37.0) g/dL RDW Std Deviation (28.0-62.0) fl RDW Coeff of Tino (11.0-15.0) % Plt Count (150-400) K/uL MPV (7.40-12.00) fL Neut % (Auto) (48.0-80.0) % Lymph % (Auto) (16.0-40.0) % Rosebud % (Auto) (0.0-15.0) % Eos % (Auto) (0.0-7.0) % Baso % (Auto) (0.0-1.5) % Neut # (Auto) (1.4-5.7) K/uL Lymph # (Auto) (0.6-2.4) K/uL [place] # (Auto) (0.0-0.8) K/uL Eos # (Auto) (0.0-0.7) K/uL Baso # (Auto) (0.0-0.1) K/uL Nucleated RBC % /100WBC Nucleated RBCs # K/uL Sodium (136-145) mmol/L Potassium (3.5-5.1) mmol/L Chloride (98-107) mmol/L Carbon Dioxide (21.0-32.0) mmol/L BUN (7.0-18.0) mg/dL Creatinine (0.6-1.0) mg/dL Est Cr Clr Drug Dosing mL/min Estimated GFR (MDRD) ml/min Glucose (74-106) mg/dL Calcium (8.5-10.1) mg/dL Total Bilirubin (0.2-1.0) mg/dL AST (15-37) IU/L ALT (14-63) IU/L Alkaline Phosphatase (46-116) U/L Total Protein (6.4-8.2) g/dL Albumin (3.4-5.0) g/dL Globulin (2.6-4.0) g/dL Albumin/Globulin Ratio (0.9-1.6) HCG, Quant mIU/mL Urine Color Urine Appearance Urine pH (5.0-8.0) Ur Specific [place] (1.001-1.035) Urine Protein (NEGATIVE) mg/dL Urine Glucose (UA) (NEGATIVE) mg/dL Urine Ketones (NEGATIVE) mg/dL Urine Occult Blood (NEGATIVE) Urine Nitrite (NEGATIVE) Urine Bilirubin (NEGATIVE) Urine Urobilinogen (<2.0) EU/dL Ur Leukocyte Esterase (NEGATIVE) Urine RBC (0-2/HPF) Urine WBC (0-5/HPF) Ur Epithelial Cells (NONE-FEW) Urine Bacteria (NEGATIVE) Urine Mucus (NONE-MOD) Blood Type O POSITIVE Meds: Medications Generic Name Dose Route Start Last Admin Trade Name Freq PRN Reason Stop Dose Admin Sodium Chloride 10 ml 03/31/21 19:00 Sodium Chloride 0.9% 10 Ml Syringe FLUSH ASDIRECTED PRN Keep Vein Open Sodium Chloride 2.5 ml 03/31/21 19:00 Sodium Chloride 0.9% 2.5 Ml Syringe FLUSH ASDIRECTED PRN Keep Vein Open Discontinued Medications Generic Name Dose Route Start Last Admin Trade Name Freq PRN Reason Stop Dose Admin Morphine Sulfate 4 mg 03/31/21 19:21 03/31/21 19:36 Morphine 4 Mg/Ml Syringe IVPUSH 03/31/21 19:22 4 mg ONETIME ONE Administration - Re-Assessments/Exams Free Text/Narrative Re-Assessment/Exam: 03/31/21 19:04 Will get labs including quantitative b-hcg, ABO typing, and routine labs. Will check UA. Will get OB US. 03/31/21 19:21 Report from prior ultrasound reveals normal IUP estimated dates not correlating with LMP showing 6w2d on 03/20, subchorionic hemorrhage, otherwise unremarkable US. On abdominal exam patient reports TTP without guarding in b/l suprapelvic area. Will give morphine for analgesia; discussed risks/benefits with patient 03/31/21 20:33 On pelvic exam patient is noted to have normal external genitalia with dried blood around the external vagina. On speculum exam patient is noted to have a moderate amount of bright red blood in posterior vaginal vault and I had difficulty visualizing the cervix. Bimanual exam was complicated by patient not tolerating exam well, no adnexal masses or tenderness, difficult to palpate cervix. Will follow up ultrasonography and disposition patient accordingly. 03/31/21 21:19 Pelvic ultrasound is compatible with incomplete miscarriage. I did inform the patient of these results. We will send home with short course of analgesia and recommend follow-up with PIT FURNACE OPERATOR tomorrow. Patient understands. Return precautions were discussed at length. Departure - Departure Time of Disposition: 21:19 Disposition: Home, Self-Care 01 Condition: Good Clinical Impression: Miscarriage - Discharge Information Instructions: Miscarriage Referrals: PCP,None [Primary Care Provider] - Forms: ED Department Discharge Additional Instructions: Please follow-up with your PIT FURNACE OPERATOR tomorrow. If you have heavy bleeding or feel like you are about to pass out or do pass out then please come back to the emergency department for reassessment. The following information is given to patients seen in the emergency department who are being discharged to home. This information is to outline your options for follow-up care. We provide all patients seen in our emergency department with a follow-up referral. The need for follow-up, as well as the timing and circumstances, are variable depending upon the specifics of your emergency department visit. If you don't have a primary care physician on staff, we will provide you with a referral. We always advise you to contact your personal physician following an emergency department visit to inform them of the circumstance of the visit and f or follow-up with them and/or the need for any referrals to a consulting specialist. The emergency department will also refer you to a specialist when appropriate. This referral assures that you have the opportunity for follow-up care with a specialist. All of these measure are taken in an effort to provide you with optimal care, which includes your follow-up. Under all circumstances we always encourage you to contact your private physician who remains a resource for coordinating your care. When calling for follow-up care, please make the office aware that this follow-up is from your recent emergency room visit. If for any reason you are refused follow-up, please contact the [facility] Emergency Department at and asked to speak to the emergency department charge nurse. Please follow up with your primary care physician. If you do not have a primary care physician, see below: [facility] [address] [place] [id number] My [facility] [address] [place] [id number] [facility] [address] [place] [id number] Sepsis Event Note (ED) - Focused Exam Vital Signs: Vital Signs Temp Pulse Resp BP Pulse Ox 03/31/21 20:20 93 17 103/59 L 99 03/31/21 19:15 65 19 126/87 100 03/31/21 18:56 97.6 F 78 17 117/80 98 - My Orders Last 24 Hours: My Active Orders 03/31/21 19:00 Sodium Chloride 0.9% [Saline Flush] 10 ml FLUSH ASDIRECTED PRN Sodium Chloride 0.9% [Saline Flush] 2.5 ml FLUSH ASDIRECTED PRN Saline Lock Insert [OM.PC] Stat - Assessment/Plan Last 24 Hours: My Active Orders 03/31/21 19:00 Sodium Chloride 0.9% [Saline Flush] 10 ml FLUSH ASDIRECTED PRN Sodium Chloride 0.9% [Saline Flush] 2.5 ml FLUSH ASDIRECTED PRN Saline Lock Insert [OM.PC] Stat
[2021-03-31] MEDS ORDERED: Sodium Chloride 0.9% 10 ML Syringe FLUSH PRN (19:00)
[2021-03-31] MEDS ORDERED: Sodium Chloride 0.9% 2.5 ML Syringe FLUSH PRN (19:00)
[2021-03-31] MEDS ORDERED: Morphine 4 MG/ML Syringe IVPUSH ONE (19:21)
[2021-03-31 20:48] LABS: BLOOD UREA NITROGEN,BUN 14 mg/dL (7.0-18.0); CARBON DIOXIDE,CO2 24.3 mmol/L (21.0-32.0); CHLORIDE,CL 102 mmol/L (98-107); GLUCOSE RANDOM 81 mg/dL (74-106); POTASSIUM,K 3.8 mmol/L (3.5-5.1); SODIUM,NA 137 mmol/L (136-145)
--- NOTE | 2021-03-31 21:04 | US ---
Examination: Obstetric ultrasound Indication: Vaginal bleeding. A week . Technique: Grayscale, color Doppler, and spectral Doppler images are obtained transabdominally and transvaginally. Comparison: None available Findings: Uterus measures 8.5 x 5.3 cm. A gestational sac is identified in the uterus. The crown-rump length is 0.42 cm, suggesting a 6 week 1 day . No heart tones. Cervix is closed and measures 3.5 cm in length. Ovaries are symmetric in size and echogenicity. There is flow in both of the ovaries. Right ovary measures 2.5 x 1.8 x 2.4 cm. Left ovary measures 2.4 x 1.4 x 2.0 cm. No free fluid. No adnexal mass. Impression: Intrauterine identified with estimated age of 6 weeks 1 day. No heart tones. This is concerning for failed early . Recommend close clinical and ultrasound follow-up. Dictated by Talib Hamilton MD @ 03/31/2021 9:02:[address] Talib Hamilton @ Mar 31 2021 9:02PM
== END 2021-03-31 21:57 | disposition home or self-care (01) ==
LOC: MW.ED 18:27
DX: O03.9 Complete or unspecified spontaneous abortion without complication (principal); E03.9 Hypothyroidism, unspecified; Z88.2 Allergy status to sulfonamides; Z79.899 Other long term (current) drug therapy
CPT/HCPCS: 36415; 76813; 80053; 81001; 84702; 85025; 86900; 86901; 96374; 99284; J2270; 76816-26